=== PATIENT | female | born 1955 | race Caucasian/White ===

== ENCOUNTER 2019-10-14 19:05 | Emergency (ER) | payer OTHER, SELFPAY ==
--- NOTE | ~2019-10-14 | XR_ITS ---
EXAMINATION: XR chest 2V DATE: 10/14/2019 19:56 INDICATION: Cough and shortness of breath TECHNIQUE: PA and lateral views of the chest were obtained. COMPARISON: None FINDINGS: Elevation of the right hemidiaphragm. No focal airspace opacities, pulmonary edema, pleural effusion or pneumothorax. The cardiomediastinal silhouette is normal. Moderate thoracic spondylosis. IMPRESSION: 1. Elevation of the right hemidiaphragm. No other acute cardiopulmonary disease. Reviewed, dictated and finalized at location A. IMPRESSION: 1. Elevation of the right hemidiaphragm. No other acute cardiopulmonary disease .
--- NOTE | 2019-10-14 19:17 | PC.NURSE ---
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
[2019-10-14 19:29] VITALS: BP 155/90; PULSE 61; RESP 20; TEMP 36.6; O2SAT 97
--- NOTE | 2019-10-14 19:32 | ECG_ITS ---
Measurements Intervals [place] Rate: 58 P: 18 IA: 201 QRS: -5 QRSD: 81 T: 2 QT: 394 QTc: 389 Interpretive Statements SINUS BRADYCARDIA BORDERLINE AV CONDUCTION DELAY DELAYED PRECORDIAL R/S TRANSITION BORDERLINE T WAVE ABNORMALITY- INFERIOR LEADS BASELINE ARTIFACT- II, III, AVF, V1 BORDERLINE ECG Electronically Signed On 10-15-2019 7:03:34 CDT by Luis Umaña D.O.
[2019-10-14 19:50] LABS: Basophils Absolute Auto 0.03 K/mm3 (0.00-0.10); Basophils Percent Auto 0.3 % (0.0-1.0); Eosinophils Absolute Auto 0.23 K/mm3 (0.02-0.50); Eosinophils Percent Auto 2.5 % (1.0-6.0); Hematocrit 41.5 % (35.0-49.0); Hemoglobin 13.5 g/dL (12.0-15.0); Immature Granulocyte Absolute 0.03 K/mm3 (0.00-0.00); Immature Granulocyte Percent A 0.3 % (0.0-0.0); Lymphocytes Absolute Auto 2.69 K/mm3 (1.10-4.50); Lymphocytes Percent Auto 28.9 % (18.0-42.0); Mean Corpuscular HGB Conc 32.5 g/dL (32.0-36.0); Mean Corpuscular Hemoglobin 30.8 pg (27.0-31.0); Mean Corpuscular Volume 94.5 fL (78.0-102.0); Mean Platelet Volume 9.3 fl (9.2-11.8); Monocytes Percent Auto 8.6 % (2.0-11.0); Neutrophils Absolute Auto 5.5 K/mm3 (1.7-7.2); Neutrophils Percent Auto 59.4 % (50.0-70.0); Platelet Count Result 266 K/mm3 (150-420); Red Blood Count 4.39 M/mm3 (4.20-5.40); Red Cell Distribution Width 11.5 % (11.6-14.4); White Blood Count 9.3 K/mm3 (4.8-10.8)
[2019-10-14 19:55] VITALS: BP 163/90; PULSE 63; RESP 20
[2019-10-14] MEDS: PANTOPRAZOLE SODIUM IV 40 MG VIAL IV PUSH (20:02)
[2019-10-14 20:15] LABS: Alanine Aminotransferase 24 U/L (14-59); Albumin Level 3.5 g/dL (3.4-5.0); Alkaline Phosphatase 57 U/L (46-116); Anion Gap 7 mmol/L (8-16); Aspartate Amino Transferase 12 U/L (15-37); Bilirubin,Total 0.3 mg/dL (0.00-1.00); Blood Urea Nitrogen 18 mg/dL (7-18); Calcium 8.7 mg/dL (8.5-10.1); Carbon Dioxide 30 mmol/L (21-32); Chloride 104 mmol/L (98-108); Estimated CRCL calculation 88 ml/min; Estimated Glomerular Filt Rate > 60; Glucose 115 mg/dL (70-99); Osmolality Calculated 294 mOsm/kg (285-295); Potassium 4.2 mmol/L (3.5-5.1); Sodium 141 mmol/L (136-145); Total Protein 7.1 g/dL (6.4-8.2); Troponin I < 0.02 ng/mL (0.00-0.056)
[2019-10-14 20:25] LABS: D Dimer 0.35 mg/L (0.19-0.50)
[2019-10-14 20:28] LABS: BNP 65.6 pg/mL (0-100)
--- NOTE | 2019-10-14 20:30 | ED.GENADULT ---
HPI - General Adult General Chief complaint: Unspecified Stated complaint: high blood pressure,nauseous, pain in upper abd Source: patient and family Mode of arrival: ambulatory Limitations: no limitations History of Present Illness HPI narrative: This is a 64-year-old female who presents with some elevated blood pressure her initial blood pressure was 155/90 and she became anxious and was having some epigastric burning with no shortness of breath no nausea vomiting no chest pain no chest pressure no fever chills. Patient is not having abdominal pain no flank pain no diarrhea constipation. Onset (ago): day(s) Related Data Home Medications Medication Instructions Recorded Confirmed Aspir-81 See Rx Instructions .ROUTE .COMPLEX 10/14/19 10/14/19 albuterol sulfate [Ventolin HFA] See Rx Instructions .ROUTE .COMPLEX 10/14/19 10/14/19 citalopram [Celexa] See Rx Instructions .ROUTE .COMPLEX 10/14/19 10/14/19 estradiol-norethindrone acet See Rx Instructions .ROUTE .COMPLEX 10/14/19 10/14/19 [Activella] ferrous sulfate 325 mg PO DAILY 10/14/19 10/14/19 glucosamine sulfate [Glucosamine] See Rx Instructions .ROUTE .COMPLEX 10/14/19 10/14/19 guaifenesin [Mucinex] 1,200 mg PO BID 10/14/19 10/14/19 lorazepam [Ativan] See Rx Instructions .ROUTE .COMPLEX 10/14/19 10/14/19 metoprolol tartrate [Lopressor] See Rx Instructions .ROUTE .COMPLEX 10/14/19 10/14/19 pantoprazole [Protonix] See Rx Instructions .ROUTE .COMPLEX 10/14/19 10/14/19 Allergies Allergy/AdvReac Type Severity Reaction Status Date / Time penicillin G Allergy Other Verified 10/14/19 19:29 Review of Systems Review of Systems: All systems reviewed & are unremarkable except as noted in HPI and below PMFSH Past Medical History Medical History GERD (gastroesophageal reflux disease) HTN (hypertension) Social History Social History Gender identity (if verbalized by the patient): Female Exam Const: General: no acute distress and alert Orientation/consciousness: patient oriented x3 HENMT: Head: normal to inspection Eyes: Conjunctivae: conjunctivae normal Pupils: Equal, round and reactive pupils present Neck: Neck: normal visual inspection and no lymphadenopathy Chest: Chest palpation & inspection: normal inspection of the chest Resp: Effort & Inspection: normal respiratory effort Cardio: Rhythm: regular rhythm GI: GI Palp: Yes Soft to palpation : General: Yes no CVA tenderness Back/Spine/Pelvis: Back: no CVA tenderness Skin: General skin exam: normal color Rashes: no rashes Neuro: General: patient oriented x3 Extrem: General: normal to inspection and no pedal edema Psych: Mental Status: mental status grossly normal Course Course Emergency Course: reassessment the patient, patient has improved her blood pressure is down to 131/95 with some no abdominal discomfort no shortness of breath no chest pressure. The patient received IV Protonix and was advised to check blood pressures at home and follow-up with her primary care physician. Vital Signs Vital signs: Vital Signs Temperature 36.6 C 10/14/19 19:29 Pulse Rate 61 10/14/19 19:29 Respiratory Rate 10/14/19 19:29 Blood Pressure 155/90 H 10/14/19 19:29 Pulse Oximetry 97 10/14/19 19:29 Temperature 36.6 C 10/14/19 19:29 Pulse Rate 63 10/14/19 19:55 Respiratory Rate 20 10/14/19 19:55 Blood Pressure 163/90 H 10/14/19 19:55 Pulse Oximetry 97 10/14/19 19:29 Medical Decision Making Vital Signs Vital Signs: Vital Signs Temperature 36.6 C 10/14/19 19:29 Pulse Rate 61 10/14/19 19:29 Respiratory Rate 20 10/14/19 19:29 Blood Pressure 155/90 H 10/14/19 19:29 Pulse Oximetry 97 10/14/19 19:29 Temperature 36.6 C 10/14/19 19:29 Pulse Rate 63 10/14/19 19:55 Respiratory Rate 20 10/14/19 19:55 Blood Pressure 163/90 H
[2019-10-14 20:32] VITALS: BP 131/95; PULSE 67; RESP 20; O2SAT 97
== END 2019-10-14 20:54 | disposition home or self-care (01) ==
PROVIDERS: Emergency Provider Emergency Medicine; PCP Family Medicine
DX: I10 Essential (primary) hypertension (principal); K21.9 Gastro-esophageal reflux disease without esophagitis
CPT/HCPCS: 36415; 71046; 80053; 83880; 84484; 85025; 85380; 93005; 96374; 99283; 99284; C9113

== ENCOUNTER 2020-01-01 09:15 | Outpatient (CLI) | payer OTHER, SELFPAY ==
--- NOTE | ~2020-01-01 | MM_ITS ---
EXAMINATION: MM screening to BI w carmen HISTORY: Screening TECHNIQUE: Craniocaudal and mediolateral oblique 3-D tomosynthesis images were obtained and synthetic 2-D images were generated. CAD analysis was submitted and interpreted. COMPARISON: No prior mammogram is available for comparison at this institution. BREAST PARENCHYMAL COMPOSITION: There are scattered areas of fibroglandular density. FINDINGS: There is no evidence of suspicious mass, calcification, or architectural distortion to sugg est malignancy in either breast. There has been no suspicious interval change. IMPRESSION: 1. No mammographic evidence of malignancy. 2. Recommend routine screening mammography in one year. BI-RADS Category 1: Negative Reviewed, dictated and finalized at location A. EMS ARCHITECT
== END 2020-01-01 09:16 | disposition home or self-care (01) ==
LOC: CHSIMG 09:18
PROVIDERS: PCP Family Medicine; Visit Provider Nurse Practitioner Family
DX: Z12.31 Encounter for screening mammogram for malignant neoplasm of breast (principal)
CPT/HCPCS: 77063; 77067

== ENCOUNTER 2021-01-08 08:16 | Outpatient (CLI) | payer OTHER, SELFPAY ==
--- NOTE | ~2021-01-08 | MM_ITS ---
EXAMINATION: MM screening to BI w carmen HISTORY: Screening mammogram TECHNIQUE: Craniocaudal and mediolateral oblique 3-D tomosynthesis images were obtained and synthetic 2-D images were generated. CAD analysis was submitted and interpreted. COMPARISON: 01/01/2020 bilateral screening mammogram BREAST PARENCHYMAL COMPOSITION: There are scattered areas of fibroglandular density. FINDINGS: There is no evidence of suspicious mass, calcification, or architectural distortion to sugg est malignancy in either breast. There has been no suspicious interval change. IMPRESSION: 1. No mammographic evidence of malignancy. 2. Recommend routine screening mammography in one year. BI-RADS Category 1: Negative Reviewed, dictated and finalized at location A. EMIC SUPPORT DIRECTOR
== END 2021-01-08 08:17 | disposition home or self-care (01) ==
LOC: CHSIMG 08:17
PROVIDERS: PCP Nurse Practitioner Family; Visit Provider Obstetrics & Gynecology
DX: Z12.31 Encounter for screening mammogram for malignant neoplasm of breast (principal)
CPT/HCPCS: 77063; 77067

== ENCOUNTER 2023-02-03 14:17 | Outpatient (CLI) | payer OTHER, SELFPAY ==
--- NOTE | ~2023-02-03 | MM_ITS ---
EXAMINATION: MM screening to BI w carmen HISTORY: Screening mammogram TECHNIQUE: Craniocaudal and mediolateral oblique 3-D tomosynthesis images were obtained and synthetic 2-D images were generated. CAD analysis was submitted and interpreted. COMPARISON: 01/08/2021, 01/01/2020 BREAST PARENCHYMAL COMPOSITION: The breasts are almost entirely fatty. FINDINGS: No suspicious mass, calcification, or architectural distortion are identified in either arelis ast to suggest malignancy. There has been no suspicious interval change. IMPRESSION: 1. No mammographic evidence of malignancy. 2. Recommend routine screening mammography in one year. BI-RADS Category 1: Negative Reviewed, dictated and finalized at location A. 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
== END 2023-02-03 14:18 | disposition home or self-care (01) ==
LOC: CHSIMG 14:20
PROVIDERS: PCP Family Medicine; Visit Provider Family Medicine
DX: Z12.31 Encounter for screening mammogram for malignant neoplasm of breast (principal)
CPT/HCPCS: 77063; 77067